=== PATIENT | female | born 1965 | race American Indian/Alaskan Native ===

== ENCOUNTER 2018-06-05 13:05 | Emergency (ER) | payer OTHER ==
--- NOTE | 2018-06-05 13:29 | Emergency Department Report ---
Blank Doc - Documentation Documentation: This is a 52-year-old female that presents with left knee pain s/p fall This initial assessment/diagnostic orders/clinical plan/treatment(s) is/are subject to change based on patient's health status, clinical progression and re- assessment by fellow clinical providers in the ED. Further treatment and workup at subsequent clinical providers discretion. Patient/guardians urged not to elope from the ED as their condition may be serious if not clinically assessed and managed. Initial orders include: 1- Patient sent to [facility] for further evaluation and treatment 2- xray
[2018-06-05 13:30] VITALS: BP 131/66
--- NOTE | 2018-06-05 13:52 | XRay Report ---
LEFT KNEE RADIOGRAPHS INDICATION: Left knee pain. COMPARISON: None similar at this institution. FINDINGS: AP, oblique and lateral left knee radiographs suggest slight medial compartment narrowing. Mild tibial spine degenerative spurring/prominence as well. No suprapatellar effusion. CONCLUSION: Left knee early degenerative changes suspected, as described. Thank you for the opportunity to participate in this patient's care.
[2018-06-05] MEDS ORDERED: TORADOL IM ONE (14:12)
[2018-06-05] MEDS ORDERED: NORCO 7.5/325 PO ONE (14:12)
--- NOTE | 2018-06-05 14:13 | Emergency Department Report ---
ED Lower Extremity HPI - General Chief Complaint: Extremity Problem,Nontraumatic Stated Complaint: L KNEE PAIN Time Seen by Provider: 06/05/18 13:28 Source: patient Mode of arrival: Wheelchair Limitations: No Limitations - History of Present Illness MD Complaint: knee injury -: Gradual, days(s) Injury: Knee: Right Type of Injury: unknown Place: home Severity: moderate Improves With: nothing Worsens With: weight bearing - Related Data Previous Rx's Medication Instructions Recorded Last Taken Type predniSONE [Deltasone] 20 mg PO DAILY #5 tablet 06/05/18 Unknown Rx Allergies Allergy/AdvReac Type Severity Reaction Status Date / Time No Known Allergies Allergy Unverified 06/05/18 13:30 ED Review of Systems ROS: Stated complaint: L KNEE PAIN Other details as noted in HPI Comment: All other systems reviewed and negative Constitutional: denies: chills, fever Eyes: denies: eye pain ENT: denies: ear pain Respiratory: denies: orthopnea Cardiovascular: denies: dyspnea on exertion Endocrine: denies: flushing Gastrointestinal: denies: nausea Genitourinary: denies: dysuria Musculoskeletal: as per HPI Skin: denies: rash Neurological: denies: headache Hematological/Lymphatic: denies: easy bleeding ED Past Medical Hx - Past Medical History Previous Medical History?: Yes Hx Hypertension: Yes - Surgical History Past Surgical History?: No - Family History Family history: no significant - Social History Smoking Status: Never Smoker Substance Use Type: None - Medications Home Medications: Home Medications Medication Instructions Recorded Confirmed Last Taken Type predniSONE [Deltasone] 20 mg PO DAILY #5 tablet 06/05/18 Unknown Rx ED Physical Exam - General Limitations: No Limitations General appearance: alert - Head Head exam: Present: atraumatic - Eye Eye exam: Present: normal appearance, PERRL - ENT ENT exam: Present: normal exam, mucous membranes moist - Neck Neck exam: Present: normal inspection - Respiratory Respiratory exam: Present: normal lung sounds bilaterally - Cardiovascular Cardiovascular Exam: Present: regular rate - GI/Abdominal GI/Abdominal exam: Present: soft, normal bowel sounds - Extremities Exam Extremities exam: Present: normal inspection, full ROM - Expanded Lower Extremity Exam Left Upper Leg exam: Present: normal inspection Knee exam: Present: full ROM (BUT WITH PAIN), full knee extension. Absent: erythema, effusion Lower Leg exam: Present: normal inspection - Back Exam Back exam: Present: normal inspection, full ROM - Neurological Exam Neurological exam: Present: alert, oriented X3 - Psychiatric Psychiatric exam: Present: normal affect, normal mood ED Course Vital Signs 06/05/18 06/05/18 06/05/18 13:28 14:23 14:24 Temperature 98.2 F Pulse Rate 78 Respiratory 18 18 18 Rate Blood Pressure 131/66 O2 Sat by Pulse 97 Oximetry ED Lower Extremity MDM - Radiology Data Radiology results: report reviewed, image reviewed - Medical Decision Making XRAY NEG FOR ACUTE PROCESS POS ARTHRITIS PT WILL NOT BEAR WEIGHT BUT DENIES ANY TRAUMA MEDICATED FOR PAIN IMMOB FOR 48 WITH REST THEN PT TO SEE ORTHO IN FOLLOW UP EDUCATED PT ON NOT USING IMMOB. MORE THAN NEEDED DUE TO SECONDARY INJURY SHE VERBALIZES UNDERSTANDING DC HOME W DC POC AND FOLLOW UP SHE IS REQUESTING WORK NOTE. Critical care attestation.: If time is entered above; I have spent that time in minutes in the direct care of this critically ill patient, excluding procedure time. ED Disposition Clinical Impression: Arthritis, Knee pain, left Disposition: DC-01 TO HOME OR SELFCARE Is pt being admited?: No Does the pt Need Aspirin: No Condition: Stable Instructions: Knee Pain (ED), Arthralgia (ED) Additional Instructions: MEDS ORDERED TODAY MOTRIN AND TYLENOL CAN BE USED FOR MILD PAIN IMMOB AND CRUTCHES FOR 49 HOURS UNTIL YOU CAN AMBULATE AND THEN DO NOT USE IF YOU USE TOO MUCH YOU WILL DEVELOP SECONDARY PROBLEMS FOLLOW UP ORTHO REFERRAL BELOW Prescriptions: predniSONE [Deltasone] 20 mg PO DAILY #5 tablet Referrals: NIKOS LACKEY MD [Staff Physician] - 3-5 Days Time of Disposition: 14:29
== END 2018-06-05 15:10 | disposition home or self-care (01) ==
LOC: ED 13:05
DX: M25.562 Pain in left knee (principal); I10 Essential (primary) hypertension
CPT/HCPCS: 29505; 73562; 96372; 99283; J1885

== ENCOUNTER 2018-06-28 10:01 | Outpatient (CLI) | payer OTHER ==
--- NOTE | 2018-06-28 11:34 | XRay Report ---
LEFT SHOULDER, 3 VIEWS History: Pain. Findings: Normal bone mineralization. Mild osteoarthritic changes are identified at the acromioclavicular joint and glenohumeral joint. There is no evidence for fracture, dislocation, ligamentous injury or bone lesion. The soft tissues are unremarkable. Impression: Mild osteoarthritis.
--- NOTE | 2018-06-28 11:35 | XRay Report ---
LEFT KNEE, 2 views: History: Pain Normal bone mineralization. There is mild to moderate medial compartment joint space narrowing. Minimal retropatellar spurring. A small enthesophyte is noted in the superior patella. No evidence for fracture, bone lesion, osteochondral defect or significant joint effusion. IMPRESSION: Mild osteoarthritis.
== END 2018-06-28 10:02 | disposition home or self-care (01) ==
LOC: XRAY 10:01
PROVIDERS: ATTEND Orthopaedic Surgery
DX: M17.12 Unilateral primary osteoarthritis, left knee (principal); M19.012 Primary osteoarthritis, left shoulder; I10 Essential (primary) hypertension